=== PATIENT | female | born 1975 | race Caucasian/White ===

== ENCOUNTER 2017-12-31 14:53 | Emergency (ER) | payer OTHER ==
[~2017-12-31] VITALS: Ht 172.7 cm; Wt 200.3 kg
[2017-12-31 15:25] VITALS: BP 153/64
[2017-12-31] MEDS ORDERED: KETOROLAC 60 MG/2 ML VIAL IM ONE (16:05)
--- NOTE | 2017-12-31 16:14 | NUR ---
PT COMES TO ER WITH C/O LEFT LOWER BACK PAIN RADIATING TO LLE WITH MILD NUMBNESS. PT DENIES ANY ACUTE INJURY. STATES SHE HAS BEEN HAVING ISSUES WITH IT FOR A WHILE. PT AMBULATORY. MOTHER AT BEDSIDE.
--- NOTE | 2017-12-31 16:26 | NUR ---
MEDICATED ORDERED, WILL MONITOR FOR ANY ADVERSE SIDE EFFCTS.
[2017-12-31 16:45] VITALS: BP 123/88
--- NOTE | 2017-12-31 16:45 | NUR ---
Patient discharged with v/s stable. Written and verbal after care instructions given and explained. Patient alert, oriented and verbalized understanding of instructions. Ambulatory with steady gait. All questions addressed prior to discharge. ID band removed. Patient advised to follow up with PMD. Rx of TRAMADOL, MEDROL given. Patient educated on indication of medication including possible reaction and side effects. Opportunity to ask questions provided and answered.
== END 2017-12-31 16:45 | disposition home or self-care (01) ==
LOC: MED 14:53
DX: M54.42 Lumbago with sciatica, left side (principal); E66.01 Morbid (severe) obesity due to excess calories; Z68.44 Body mass index [BMI] 60.0-69.9, adult
CPT/HCPCS: 96372; 99283; J1885

== ENCOUNTER 2019-02-21 16:28 | Inpatient (IN) | payer OTHER ==
[~2019-02-21] VITALS: Ht 170.2 cm; Wt 186.4 kg
[2019-02-21 16:33] VITALS: BP_SYST 171; BP_SYST 71; BP_DIAS 84
--- NOTE | 2019-02-21 16:40 | NUR ---
PT AMBULATED TO CHAIR C AT THIS TIME, UNTIL A BED OPENS UP.
--- NOTE | 2019-02-21 16:40 | NUR ---
DR. ROSENBERG AT BEDSIDE EVALUATING PT
--- NOTE | 2019-02-21 16:49 | NUR ---
PT BIB SELF, REFERRED FROM PCP FOR ABNORMAL LABS, PT REFERRAL STATES HER HGB IS 5.7. PT DENIES ANY BLEEDING OR HEAVY MENSTURAL CYCLE. PT STATES SHE HAS FELT FATIGUED RECENTLY. PT SKIN IS PALE, WARM, DRY. PT AWAKE AND ALERT SITTING IN CHAIR. PMH HTN
[2019-02-21 17:48] LABS: BASOPHILS % (AUTO) 0.5 % (0.0-2.0); EOSINOPHILS # (AUTO) 0.2 K/uL (0-0.4); EOSINOPHILS % (AUTO) 2.5 % (0.0-4.0); HEMATOCRIT 21.4 % (36-48); LYMPHOCYTES % (AUTO) 34.7 % (20.5-51.1); MEAN CORPUSCULAR HEMOGLOBIN 14 pg (27-31); MEAN CORPUSCULAR HGB CONC 27 g/dL (33-37); MEAN CORPUSCULAR VOLUME 53.3 fL (80-94); MONOCYTES # (AUTO) 0.9 K/uL (0.8-1.0); MONOCYTES % (AUTO) 10.5 % (1.7-9.3); NEUTROPHILS # (AUTO) 4.4 K/uL (1.8-7.7); NEUTROPHILS % (AUTO) 51.8 % (42.2-75.2); PLATELET COUNT (AUTO) 386 K/uL (140-450); RED BLOOD CELL COUNT(AUTO) 4.02 MIL/uL (4.20-5.40); RED CELL DISTRIBUTION WIDTH 22.5 % (11.6-13.7); WHITE BLOOD COUNT (AUTO) 8.6 K/uL (4.8-10.8)
[2019-02-21 17:56] LABS: HEMOGLOBIN 5.7 g/dL (12.0-16.0)
[2019-02-21 18:05] LABS: CARBON DIOXIDE 25.2 mmol/L (21-32); CREATININE 1.1 mg/dL (0.6-1.3); POTASSIUM 3.2 mmol/L (3.5-5.1)
[2019-02-21 18:08] LABS: PROTHROMBIN TIME 10.8 secs (10.8-13.4)
[2019-02-21 18:20] LABS: ALBUMIN 3.7 g/dL (3.4-5.0); FREE T4 (FREE THYROXINE) 1.38 ng/dL (0.76-1.46); THYROID STIMULATING HORMONE 5.66 uIU/mL (0.34-3.74)
[2019-02-21] MEDS ORDERED: ONDANSETRON 4 MG/2 ML VIAL IVP PRN (18:50)
[2019-02-21] MEDS ORDERED: ACETAMINOPHEN 325 MG TAB PO PRN (18:50)
[2019-02-21] MEDS ORDERED: ALBUTEROL 0.083% 2.5 MG/3 ML NEBU INH PRN (18:50)
[2019-02-21] MEDS ORDERED: MORPHINE SULFATE 4 MG/ML SYR IVP PRN (18:50)
[2019-02-21] MEDS ORDERED: HYDROcodone/APAP 5/325 MG 1 TAB TAB PO PRN (18:50)
[2019-02-21] MEDS ORDERED: LORazepam 2 MG/ML VIAL IVP PRN (18:50)
[2019-02-21] MEDS ORDERED: ORE25 PO (19:00)
[2019-02-21] MEDS ORDERED: AMLO5TAB PO (19:01)
[2019-02-21] MEDS ORDERED: LEVO0.155 PO (19:01)
[2019-02-21 19:27] VITALS: BP 110/61
--- NOTE | 2019-02-21 19:27 | NUR ---
RECEIVED BEDSIDE REPORT FROM ED RN JANNETH, FOR PT'S CONTINUITY OF CARE. PATIENT IS AAO X 4, IS ON ROOM AIR, HAS LEFT FOREARM 20G SALINE LOCK, SKIN IS INTACT, DENIES ANY PAIN AT THIS TIME. WILL CHECK VS, AND CARRY OUT ADMIT ORDERS. PT IS TO RECEIVE BLOOD TRANSFUSION, EXPLAINED TO PT PROCESS AND PROTOCOL RE: BLOOD TRANSFUSION. PT VERBALIZED UNDERSTANDING. WILL MONITOR PT THROUGHOUT SHIFT.
--- NOTE | 2019-02-21 19:35 | NUR ---
Patient will be admitted to care of DR. LOVE. Admited to MED SURG. Will go to room 120-A. Belongings list completed. Report to JEAN ROE.
[2019-02-21] MEDS: NACL 0.9% 1,000 ML IV SCH (21:10)
--- NOTE | 2019-02-21 21:10 | NUR ---
HUNG IV NS 1,000 ML/HR INFUSING AT 80 ML/HR, ORDERED.
--- NOTE | 2019-02-21 23:00 | NUR ---
STILL WAITING FOR BLOOD TRANSFUSION TO START. PT AWAKE, ALERT, WATCHING TV, DENIES PAIN AT THIS TIME. VS CHECKED AND CHARTED. WILL CONTINUE TO MONITOR PT.
[2019-02-22] VITALS: BP 144/75
--- NOTE | 2019-02-22 00:35 | NUR ---
BLOOD TRANSFUSION START ORDERED. PRE TRANSFUSION VS: T 97.4, BP 134//69 RIGHT RADIAL, P 91, RR 17, O2 SAT 98%, DENIES PAIN AT THIS TIME. WILL INITIATE BLOOD TRANSFUSION PROTOCOL.
--- NOTE | 2019-02-22 03:40 | NUR ---
1ST UNIT OF BLOOD TRANSFUSION ENDED. PROTOCOL AND PROCEDURE FOLLOWED. WILL BUSINESS SERVICES MANAGER THE 2ND UNIT.
--- NOTE | 2019-02-22 04:10 | NUR ---
2ND UNIT BLOOD TRANSFUSION STARTED. PROTOCOL AND PROCEDURE INITIATED. NO REACTION FROM 1ST UNIT. WILL CONTINUE TO MONITOR PT.
--- NOTE | 2019-02-22 05:58 | NUR ---
MADE ROUNDS. PATIENT STILL RECEIVING BLOOD TRANSFUSION, AND PT DENIES ANY PAIN. WILL ENDORSE TO AM SHIFT RN FOR PT'S CONTINUITY OF CARE.
--- NOTE | 2019-02-22 06:30 | NUR ---
BLOOD TRANSFUSION 2ND UNIT COMPLETE. VS CHECKED AND LOGGED. NO REACTION NOTED, AND PATIENT DENIES ANY PAIN. PT AWAKE AND IN STABLE CONDITION. BLOOD DRAW WILL BE TAKEN AT 0900 PER LAB. WILL ENDORSE PATIENT TO AM SHIFT RN FOR PT CONTINUITY OF CARE.
[2019-02-22] MEDS: NACL 0.9% 1,000 ML IV SCH ×3 (07:16→23:15)
--- NOTE | 2019-02-22 07:30 | NUR ---
RECEIVED BEDSIDE REPORT FROM AIRCRAFT POWERTRAIN REPAIRER NURSE. PT IS AWAKE AND ALERT, SITTING UP IN BED AND WATCHING TV. SECOND UNIT OF PRBC'S IS FINISHING UP INFUSION. PT IS IN NO ACUTE DISTRESS, NO C/O PAIN OR SOB. PT IS ON ROOM AIR, SKIN INTACT. PT IS ON A REGULAR DIET. IV SITE IS IN THE L FA 20 G. CALL LIGHT IS WITHIN REACH, WILL CONTINUE TO MONITOR.
[2019-02-22 08:00] VITALS: BP 140/70
--- NOTE | 2019-02-22 08:21 | NUR ---
PATIENT HAS BEEN SCREENED AND CATEGORIZED HIGH NUTRITION RISK. PATIENT WILL BE SEEN WITHIN 1-2 DAYS OF ADMISSION. 02/22/19-02/23/[address]
[2019-02-22 09:22] LABS: BASOPHILS # (AUTO) 0.1 K/uL (0.00-0.22); BASOPHILS % (AUTO) 0.7 % (0.0-2.0); EOSINOPHILS # (AUTO) 0.2 K/uL (0-0.4); EOSINOPHILS % (AUTO) 2.2 % (0.0-4.0); HEMATOCRIT 23.3 % (36-48); LYMPHOCYTES % (AUTO) 35.8 % (20.5-51.1); MEAN CORPUSCULAR HEMOGLOBIN 17 pg (27-31); MEAN CORPUSCULAR HGB CONC 29 g/dL (33-37); MEAN CORPUSCULAR VOLUME 57.6 fL (80-94); MONOCYTES # (AUTO) 0.8 K/uL (0.8-1.0); MONOCYTES % (AUTO) 9.9 % (1.7-9.3); NEUTROPHILS # (AUTO) 4.2 K/uL (1.8-7.7); NEUTROPHILS % (AUTO) 51.4 % (42.2-75.2); PLATELET COUNT (AUTO) 327 K/uL (140-450); RED BLOOD CELL COUNT(AUTO) 4.04 MIL/uL (4.20-5.40); RED CELL DISTRIBUTION WIDTH 29.1 % (11.6-13.7); WHITE BLOOD COUNT (AUTO) 8.3 K/uL (4.8-10.8)
[2019-02-22] MEDS: FERROUS SULFATE 325 MG TABEC PO SCH ×3 (09:23→16:14)
--- NOTE | 2019-02-22 09:26 | NUR ---
SCHEDULED AM IRON ADMINISTERED. IV NS INFUSING 80 ML/HR. AM LABS STILL PENDING.
[2019-02-22 09:34] LABS: HEMOGLOBIN 6.7 g/dL (12.0-16.0)
--- NOTE | 2019-02-22 09:53 | NUR ---
DR LOVE NOTIFIED OF PT'S HGB 5.[address] LOVE ORDERED ONE MORE UNIT OF PRBC'S AND CBC DRAW AFTER 1 HOUR. Addendum: 02/22/19 at 0954 by Paty Murphy RN COORECTION: HGB 6.7
[2019-02-22 10:14] LABS: ANION GAP 11.6 (8-16); CREATININE 1.2 mg/dL (0.6-1.3); POTASSIUM 3.6 mmol/L (3.5-5.1); TOTAL BILIRUBIN 1.2 mg/dL (0.0-1.0)
[2019-02-22 10:15] LABS: ALBUMIN 3.4 g/dL (3.4-5.0); MAGNESIUM 2.1 mg/dL (1.8-2.4)
--- NOTE | 2019-02-22 10:40 | NUR ---
CALLED LAB TO ASK IF BLOOD IS READY, COCOA MILL OPERATOR SAYS BLOOD IS NOT READY YET AND THEY WILL CALL ME WHEN IT IS READY.
--- NOTE | 2019-02-22 11:58 | NUR ---
WENT TO LAB TO ASK ABOUT BLOOD UNIT, DRAFTER DETAIL STILL DOES NOT HAVE BLOOD READY.
--- NOTE | 2019-02-22 12:48 | NUR ---
PT IS LYING IN BED WATCHING TV, NO S/S OF ANY DISTRESS.
--- NOTE | 2019-02-22 13:15 | NUR ---
RBC INFUSION STARTED. PT'S VS PRE-INFUSION: BP 136/65, HR 92, TEMP 98.1, RESP 16, O2 96, NO PAIN.
--- NOTE | 2019-02-22 13:29 | NUR ---
RBC TRANSFUSION PROCEEDING, NO S/S OF TRANSFUSION REACTIONS. VS STABLE.
--- NOTE | 2019-02-22 14:29 | NUR ---
02/22/19 RD INITIAL ASSESSMENT COMPLETED PLEASE REFER TO NUTRITION ASSESSMENT UNDER CARE ACTIVITY FOR ESTIMATED NUTRITIONAL NEEDS. 1. CONTINUE REGULAR DIET TOLERATED 2. RD PROVIDED PATIENT WITH IRON RICH FOODS AND ANEMIA NUTRITION THERAPY EDUCATION. 3. RD TO [id number] DAYS, LOW RISK ASIA GALINDO, DELORES
--- NOTE | 2019-02-22 15:13 | NUR ---
BLOOD TRANSFUSION PROCEEDING EXPECTED, NO S/S OF DISTRESS REACTIONS. VS ARE STABLE. TWO VISITORS AT BEDSIDE.
[2019-02-22 15:57] VITALS: BP 124/57
--- NOTE | 2019-02-22 16:30 | NUR ---
BLOOD TRANSFUSION COMPLETED, NO TRANSFUSION REACTIONS NOTED.
[2019-02-22 18:15] LABS: BASOPHILS # (AUTO) 0.1 K/uL (0.00-0.22); BASOPHILS % (AUTO) 1.1 % (0.0-2.0); EOSINOPHILS # (AUTO) 0.1 K/uL (0-0.4); EOSINOPHILS % (AUTO) 1.4 % (0.0-4.0); HEMATOCRIT 24.7 % (36-48); HEMOGLOBIN 7.3 g/dL (12.0-16.0); LYMPHOCYTES # (AUTO) 2.6 K/uL (2.5-16.5); LYMPHOCYTES % (AUTO) 32.3 % (20.5-51.1); MEAN CORPUSCULAR HEMOGLOBIN 17 pg (27-31); MEAN CORPUSCULAR HGB CONC 29 g/dL (33-37); MEAN CORPUSCULAR VOLUME 59.1 fL (80-94); MONOCYTES # (AUTO) 0.8 K/uL (0.8-1.0); MONOCYTES % (AUTO) 10.3 % (1.7-9.3); NEUTROPHILS # (AUTO) 4.5 K/uL (1.8-7.7); NEUTROPHILS % (AUTO) 54.9 % (42.2-75.2); PLATELET COUNT (AUTO) 323 K/uL (140-450); RED BLOOD CELL COUNT(AUTO) 4.18 MIL/uL (4.20-5.40); RED CELL DISTRIBUTION WIDTH 31.8 % (11.6-13.7); WHITE BLOOD COUNT (AUTO) 8.1 K/uL (4.8-10.8)
--- NOTE | 2019-02-22 19:20 | NUR ---
PT ENDORSED TO PRESS BRAKE OPERATOR NURSE IN STABLE CONDITION
--- NOTE | 2019-02-22 19:21 | NUR ---
RECEIVED BEDSIDE REPORT FROM DAY SHIFT NURSE. PT IS AWAKE AND ALERT, SITTING UP IN BED. DENIES PAIN. SKIN INTACT, WARM AND DRY TO TOUCH. PT IS ON ROOM AIR. IV SITE ON THE L FA 20 G, PATENT, INTACT, AND ASYMPTOMATIC. CALL LIGHT WITHIN REACH, BED IN LOW POSITION, WILL CONTINUE TO MONITOR.
--- NOTE | 2019-02-22 20:10 | NUR ---
PT AWAKE, STAYING IN BED. FAMILY AT BEDSIDE. NO ACUTE DISTRESS NOTED. BED IN LOW POSITION.
--- NOTE | 2019-02-22 23:15 | NUR ---
IVF, NS, 1000ML DONE ON 02/22/2019 AT 2315, HANG NEW BAG OF NS, 1,000ML AT SAME TIME. PT TOLERATED WELL.
[2019-02-23] VITALS: BP 138/68
--- NOTE | 2019-02-23 00:05 | NUR ---
VS CHECKED, WITHIN PT'S BASELINE. BED IN LOW POSITION, WILL CONTINUE TO MONITOR.
--- NOTE | 2019-02-23 02:34 | NUR ---
PT AWAKE, LYING IN BED. WATCHING TV. NO ACUTE DISTRESS NOTED. WILL CONTINUE TO MONITOR.
--- NOTE | 2019-02-23 04:38 | NUR ---
PT LYING IN BED, AWAKE, WATCHING TV. NO ACUTE DISTRESS NOTED. BED IN LOW POSITION, CALL LIGHT WITHIN REACH.
--- NOTE | 2019-02-23 06:26 | NUR ---
PT SLEEPING IN BED. BREATHING EVEN AND UNLABORED. BED IN LOW POSITION. CALL LIGHT WITHIN REACH.
--- NOTE | 2019-02-23 07:28 | NUR ---
RECEIVED BEDSIDE REPORT FROM DIRECTOR TALENT NURSE. PATIENT IS AWAKE, ALERT AND ORIENTEDX4. NO SIGNS OF DISTRESS ON RA. SKIN IS INTACT. IV ON L FA 20G. CLEAN, DRY AND INTACT. PATIENT IS AMBULATORY. CONTINENT. ABLE TO MAKE NEEDS KNOWN. BED IN LOW POSITION. CALL LIGHT WITHIN REACH. WILL CONTINUE TO MONITOR THE PATIENT.
[2019-02-23 08:00] VITALS: BP 124/64
--- NOTE | 2019-02-23 08:10 | NUR ---
IV FLUIDS STOPPED, IV IS LEAKING. WILL PLACE A NEW IV
[2019-02-23 08:17] LABS: BASOPHILS % (AUTO) 0.3 % (0.0-2.0); EOSINOPHILS # (AUTO) 0.2 K/uL (0-0.4); EOSINOPHILS % (AUTO) 2.4 % (0.0-4.0); HEMATOCRIT 24.4 % (36-48); LYMPHOCYTES # (AUTO) 3.1 K/uL (2.5-16.5); LYMPHOCYTES % (AUTO) 34.8 % (20.5-51.1); MEAN CORPUSCULAR HEMOGLOBIN 17 pg (27-31); MEAN CORPUSCULAR HGB CONC 29 g/dL (33-37); MONOCYTES # (AUTO) 0.8 K/uL (0.8-1.0); MONOCYTES % (AUTO) 9.1 % (1.7-9.3); NEUTROPHILS # (AUTO) 4.7 K/uL (1.8-7.7); NEUTROPHILS % (AUTO) 53.4 % (42.2-75.2); PLATELET COUNT (AUTO) 317 K/uL (140-450); RED BLOOD CELL COUNT(AUTO) 4.07 MIL/uL (4.20-5.40); RED CELL DISTRIBUTION WIDTH 31.4 % (11.6-13.7); WHITE BLOOD COUNT (AUTO) 8.8 K/uL (4.8-10.8)
[2019-02-23] MEDS: FERROUS SULFATE 325 MG TABEC PO SCH ×3 (08:25→17:29)
--- NOTE | 2019-02-23 08:26 | NUR ---
ADMINISTERED MEDS. PATIENT TOLERATED WELL. EDUCATED ON SIDE EFFECTS. PATIENT IS EATING WILL INSERT IV WHEN PATIENT IS DONE EATING.
--- NOTE | 2019-02-23 09:10 | NUR ---
ATTEMPTED A NEW IV. PATIENT IS A HARD STICK. ASKED CHARGE NURSE TO PUT A NEW IV.
--- NOTE | 2019-02-23 09:15 | NUR ---
CONTACTED PATIENT'S PCP DR GONZALEZ JJ'S OFFICE AT [phone]. SHE STATED THAT PATIENT CAN JUST WALK IN [place] FROM 0930 AM. SHE ALSO PROVIDED ME OF THEIR ADDRESS [address] [place] [address]. COPY OF APPOINTMENT GIVEN TO THE PATIENT.
--- NOTE | 2019-02-23 09:50 | NUR ---
CHARGE NURSE PLACED A NEW IV ON L FA 22G NOW INFUSING NS AT 80. CLEAN, DRY AND INTACT. OLD IV REMOVED. TIP INTACT
--- NOTE | 2019-02-23 11:04 | NUR ---
PATIENT WITH FAMILY AT BEDSIDE. NO SIGNS OF DISTRESS. WILL CONTINUE TO MONITOR THE PATIENT
--- NOTE | 2019-02-23 11:36 | NUR ---
ADMINISTERED [facility] MEDS. PATIENT TOLERATED WELL. WILL CONTINUE TO MONITOR THE PATIENT
--- NOTE | 2019-02-23 12:57 | NUR ---
TOLD PATIENT I AM JUST WAITING FOR BLOOD TO BE READY AND I WILL ADMINISTER IT. PATIENT VERBALIZED UNDERSTANDING
--- NOTE | 2019-02-23 14:25 | NUR ---
BLOOD STARTED. PATIENT IN NO DISTRESS. WILL CONTINUE TO MONITOR
--- NOTE | 2019-02-23 15:45 | NUR ---
PATIENT HAS NO SIGNS OF REACTION FROM BLOOD. WILL CONTINUE TO MONITOR THE PATIENT
[2019-02-23 16:00] VITALS: BP 130/71
--- NOTE | 2019-02-23 16:55 | NUR ---
BLOOD TRANSFUSION DONE. NO REACTION
[2019-02-23] MEDS: NACL 0.9% 1,000 ML IV SCH (17:30)
--- NOTE | 2019-02-23 17:33 | NUR ---
ADMINISTERED MEDS. PATIENT TOLERATED WELL. WILL CONTINUE TO MONITOR
--- NOTE | 2019-02-23 17:57 | NUR ---
PATIENT IS AWARE THAT SHE WILL GET BLOOD WORK AT 1900. IF HGB IS GREATER THAN 7.5 SHE CAN GO HOME
--- NOTE | 2019-02-23 19:02 | NUR ---
GAVE BEDSIDE REPORT TO EXECUTIVE BUSINESS COACH NURSE. PATIENT ENDORSED IN STABLE CONDITION
--- NOTE | 2019-02-23 19:03 | NUR ---
Received endorsement from AM shift RN; patient A/Ox4, able to make needs known, [place]or[place] speaking, ambulatory. Family at [facility]; introduced self, updated board. no SOB or distress noted, on room air. IV site on left forearm, 22 gauge, running IVF at 80mL/hr. Skin intact. Bed in the lowest position, call light within reach. Initial assessment done. Will continue to monitor.
[2019-02-23 19:16] LABS: BASOPHILS # (AUTO) 0.1 K/uL (0.00-0.22); BASOPHILS % (AUTO) 1.1 % (0.0-2.0); EOSINOPHILS # (AUTO) 0.2 K/uL (0-0.4); EOSINOPHILS % (AUTO) 2.3 % (0.0-4.0); HEMATOCRIT 26.6 % (36-48); HEMOGLOBIN 7.7 g/dL (12.0-16.0); LYMPHOCYTES # (AUTO) 2.4 K/uL (2.5-16.5); LYMPHOCYTES % (AUTO) 29.1 % (20.5-51.1); MEAN CORPUSCULAR HEMOGLOBIN 18 pg (27-31); MEAN CORPUSCULAR HGB CONC 29 g/dL (33-37); MEAN CORPUSCULAR VOLUME 61.7 fL (80-94); MONOCYTES # (AUTO) 0.8 K/uL (0.8-1.0); MONOCYTES % (AUTO) 9.1 % (1.7-9.3); NEUTROPHILS # (AUTO) 4.9 K/uL (1.8-7.7); NEUTROPHILS % (AUTO) 58.4 % (42.2-75.2); PLATELET COUNT (AUTO) 316 K/uL (140-450); RED BLOOD CELL COUNT(AUTO) 4.31 MIL/uL (4.20-5.40); RED CELL DISTRIBUTION WIDTH 33.6 % (11.6-13.7); WHITE BLOOD COUNT (AUTO) 8.4 K/uL (4.8-10.8)
--- NOTE | 2019-02-23 20:01 | NUR ---
FAMILY AT BED SIDE, SAT 99% IN ROOM AIR, FAMILY AT BED SIDE, HHN TX NOT [id number], REFUSED IS
[2019-02-23 20:04] VITALS: BP 130/68
[2019-02-23] MEDS ORDERED: FERR325E14 PO ×3 (20:18→20:21)
--- NOTE | 2019-02-23 20:30 | NUR ---
Checked HgB level: 7.7. Patient cleared for discharge.
--- NOTE | 2019-02-23 20:45 | NUR ---
Patient signed discharge paperwork and discharge packet given, teaching given. IV removed; tip intact. ID bracelets removed. Patient discharged from the unit via wheelchair. Vitals stable upon discharge.
--- NOTE | 2019-02-24 14:32 | NUR ---
CONTACTED PATIENT'S PCP HALLE PENA AT [phone], NO ANSWER. LEFT MESSAGE AND CONTACT INFORMATION. WILL FOLLOW UP
--- NOTE | 2019-02-24 14:42 | NUR ---
CONTACTED PATIENT'S PCP AGAIN, ABLE TO SPEAK TO MORRO. PROVIDE ME WITH Feb AT 1030 AM POST DISCHARGE APPOINTMENT. COPY OF APPOINTMENT PROVIDED TO THE PATIENT.
== END 2019-02-23 20:45 | disposition home or self-care (01) | DRG 532 ==
LOC: MED 16:28 → MMU 18:49 → MTU 19:29 → OBSVTOIN 02-23 10:56
PROVIDERS: ADMIT Internal Medicine; ATTEND Internal Medicine
PROC: 30233N1 Transfusion of Nonautologous Red Blood Cells into Peripheral Vein, Percutaneous Approach (ICD-10-PCS; principal; 2019-02-21)
DX: N92.6 Irregular menstruation, unspecified (principal); E66.01 Morbid (severe) obesity due to excess calories; D64.9 Anemia, unspecified; E61.1 Iron deficiency; E03.9 Hypothyroidism, unspecified; I10 Essential (primary) hypertension
CPT/HCPCS: 99285; G0378; 36415; 36430; 76830; 80053; 83540; 83735; 84439; 84443; 84484; 85025; 85610; 85730; 86886; 86900; 86901; 86920; 87081; 93005; J7030; P9016; Q0092

== ENCOUNTER 2019-09-15 15:31 | Emergency (ER) | payer OTHER ==
[~2019-09-15] VITALS: Ht 170.2 cm; Wt 181.9 kg
[~2019-09-15 15:31] MED LIST: AMLO5TAB PO; FERR325E14 PO; LEVO0.155 PO; ORE25 PO
[2019-09-15 15:40] VITALS: BP 187/86
[2019-09-15 16:06] VITALS: BP 180/84
== END 2019-09-15 16:06 | disposition home or self-care (01) ==
LOC: MED 15:31
DX: F41.9 Anxiety disorder, unspecified (principal); I10 Essential (primary) hypertension; Z79.899 Other long term (current) drug therapy
CPT/HCPCS: 99283

== ENCOUNTER 2021-03-09 15:02 | Emergency (ER) | payer OTHER ==
[~2021-03-09] VITALS: Ht 172.7 cm; Wt 111.6 kg
[~2021-03-09 15:02] MED LIST changes: +HYDR-4004 PO; -ORE25 PO
--- NOTE | 2021-03-09 15:14 | NUR ---
PT TAKEN TO ER BED 9.
[2021-03-09 15:16] VITALS: BP 149/74
--- NOTE | 2021-03-09 15:21 | NUR ---
45 Y/O FEMALE BIBA C/O PALPITATIONS AND CHEST PAIN 2/10 X5HRS INTERMITTENT, ON ARRIVAL PT STATES 0/10. DENIES N/V, DENIES FEVER/CHILLS. PMH: HTN, HYPOTHYROIDISM ALLERGIES: LACTOSE
--- NOTE | 2021-03-09 15:35 | NUR ---
VICE ADMIRAL AT PT BEDSIDE.
--- NOTE | 2021-03-09 15:36 | NUR ---
PUBLIC BATH ATTENDANT AT PT BEDSIDE.
[2021-03-09 15:55] LABS: BASOPHILS # (AUTO) 0.1 K/uL (0.00-0.22); BASOPHILS % (AUTO) 1.1 % (0.0-2.0); EOSINOPHILS # (AUTO) 0.2 K/uL (0-0.4); HEMATOCRIT 28.5 % (36-48); HEMOGLOBIN 8.3 g/dL (12.0-16.0); LYMPHOCYTES # (AUTO) 1.4 K/uL (2.5-16.5); LYMPHOCYTES % (AUTO) 19.4 % (20.5-51.1); MEAN CORPUSCULAR HEMOGLOBIN 18 pg (27-31); MEAN CORPUSCULAR HGB CONC 29 g/dL (33-37); MEAN CORPUSCULAR VOLUME 61.4 fL (80-94); MONOCYTES # (AUTO) 0.9 K/uL (0.8-1.0); MONOCYTES % (AUTO) 13.1 % (1.7-9.3); NEUTROPHILS # (AUTO) 4.5 K/uL (1.8-7.7); NEUTROPHILS % (AUTO) 63.4 % (42.2-75.2); PLATELET COUNT (AUTO) 341 K/uL (140-450); RED BLOOD CELL COUNT(AUTO) 4.63 MIL/uL (4.20-5.40); RED CELL DISTRIBUTION WIDTH 18.4 % (11.6-13.7)
--- NOTE | 2021-03-09 16:11 | NUR ---
PT RESTING IN BED, HOB ELEVATED, WILL CONTINUE TO MONITOR.
[2021-03-09 16:15] LABS: ALBUMIN 3.6 g/dL (3.4-5.0); ANION GAP 12.9 (8-16); CARBON DIOXIDE 26.7 mmol/L (21-32); CREATININE 0.9 mg/dL (0.6-1.3); POTASSIUM 3.6 mmol/L (3.5-5.1); TOTAL BILIRUBIN 0.4 mg/dL (0.0-1.0)
[2021-03-09] MEDS ORDERED: HYDR25CA1 PO (16:36)
[2021-03-09 16:48] VITALS: BP 142/76
--- NOTE | 2021-03-09 16:49 | NUR ---
Patient discharged with v/s stable. Written and verbal after care instructions given ANEMIA AND PANIC ATTACKS and explained. Patient alert, oriented and verbalized understanding of instructions. Ambulatory with steady gait. All questions addressed prior to discharge. ID band removed. Patient advised to follow up with PMD. Rx of VISTARIL 25MG PO BID PRN ANXIETY given. Patient educated on indication of medication including possible reaction and side effects. Opportunity to ask questions provided and answered.
== END 2021-03-09 16:49 | disposition home or self-care (01) ==
LOC: MED 15:02
DX: F41.0 Panic disorder [episodic paroxysmal anxiety] (principal); D50.9 Iron deficiency anemia, unspecified; I10 Essential (primary) hypertension; E03.9 Hypothyroidism, unspecified; E66.01 Morbid (severe) obesity due to excess calories; Z68.37 Body mass index [BMI] 37.0-37.9, adult
CPT/HCPCS: 36415; 71045; 80053; 83690; 83735; 83880; 84484; 85025; 85379; 93005; 99285

== ENCOUNTER 2022-06-14 13:06 | Inpatient (IN) | payer OTHER ==
[~2022-06-14] VITALS: Ht 175.3 cm; Wt 158.3 kg
[~2022-06-14 13:06] MED LIST changes: +HYDR25CA1 PO
[2022-06-14 13:12] VITALS: BP 139/76
--- NOTE | 2022-06-14 13:23 | NUR ---
PT AMB TO BED 11
--- NOTE | 2022-06-14 13:27 | NUR ---
Felicitas ralph in [facility] - 06/14/22 at 1329 by [id number] PT C/O VAGINAL BLEEDING X2 DAYS
--- NOTE | 2022-06-14 13:29 | NUR ---
PT C'/O VAGINAL BLEEDING, DIZZINESS AND WEAKNESS X3 DAYS
[2022-06-14 13:56] LABS: CARBON DIOXIDE 28.4 mmol/L (21-32); CREATININE 1.3 mg/dL (0.6-1.3); POTASSIUM 3.4 mmol/L (3.5-5.1); TOTAL BILIRUBIN 0.4 mg/dL (0.0-1.0)
--- NOTE | 2022-06-14 14:08 | NUR ---
US AT BEDSIDE
[2022-06-14 14:46] LABS: BASOPHILS # (AUTO) 0.2 K/uL (0.00-0.22); BASOPHILS % (AUTO) 1.3 % (0.0-2.0); EOSINOPHILS # (AUTO) 0.1 K/uL (0-0.4); EOSINOPHILS % (AUTO) 0.9 % (0.0-4.0); LYMPHOCYTES # (AUTO) 2.1 K/uL (2.5-16.5); LYMPHOCYTES % (AUTO) 17.2 % (20.5-51.1); MEAN CORPUSCULAR HEMOGLOBIN 18 pg (27-31); MEAN CORPUSCULAR HGB CONC 28 g/dL (33-37); MEAN CORPUSCULAR VOLUME 66.6 fL (80-94); MONOCYTES # (AUTO) 1.1 K/uL (0.8-1.0); MONOCYTES % (AUTO) 9.2 % (1.7-9.3); NEUTROPHILS # (AUTO) 8.9 K/uL (1.8-7.7); NEUTROPHILS % (AUTO) 71.4 % (42.2-75.2); PLATELET COUNT (AUTO) 362 K/uL (140-450); RED BLOOD CELL COUNT(AUTO) 2.58 MIL/uL (4.20-5.40); RED CELL DISTRIBUTION WIDTH 19.7 % (11.6-13.7); WHITE BLOOD COUNT (AUTO) 12.4 K/uL (4.8-10.8)
--- NOTE | 2022-06-14 14:51 | NUR ---
pt a/o times 4, nad, had u/s done, denies any pain, slight vag bleed at this time, o2 sat 99% ra, sr up times 2, awaits results and dispo
[2022-06-14 14:58] LABS: HEMATOCRIT 17.2 % (36-48)
--- NOTE | 2022-06-14 15:51 | NUR ---
Felicitas ralph in [place] - 06/14/22 at 1741 by [id number] jello and orange juice given, pt able to swallow well
--- NOTE | 2022-06-14 16:00 | NUR ---
a/o times 4, nad, denies any pain, no vag bleed, o2 sat 99% ra, sr uptimes 2
[2022-06-14] MEDS ORDERED: metroNIDAZOLE 500 MG/NS PREMIX 100 ML IV ONE (16:15)
[2022-06-14] MEDS ORDERED: ZOLPIDEM 5 MG TAB PO PRN (16:25)
[2022-06-14] MEDS ORDERED: ONDANSETRON 4 MG/2 ML VIAL IVP PRN (16:25)
[2022-06-14] MEDS ORDERED: MAG SULF 2000 MG/WATER PREMIX 50 ML IV PRN (16:25)
[2022-06-14] MEDS ORDERED: POTASSIUM CHLORIDE 10 MEQ TABER PO PRN (16:25)
[2022-06-14] MEDS ORDERED: KCL 20 MEQ/WATER INJ PREMIX 200 ML IV PRN (16:25)
[2022-06-14] MEDS ORDERED: ACETAMINOPHEN 325 MG TAB PO PRN (16:25)
[2022-06-14] MEDS ORDERED: HYDROcodone/APAP 5/325 MG 1 TAB TAB PO PRN (16:25)
[2022-06-14] MEDS ORDERED: cefTRIAXone 1,000 MG VIAL ONE (16:42)
[2022-06-14] MEDS: NACL 0.9% 1,000 ML IV SCH (17:35)
--- NOTE | 2022-06-14 17:41 | NUR ---
a/o times 4, will be admitted, getting abx and ivf, denies any pain or vag bleed,o2 sat 99% ra sr up times 2
--- NOTE | 2022-06-14 19:13 | NUR ---
report to [facility] shift nurse, Nelia, RN
--- NOTE | 2022-06-14 20:28 | NUR ---
Patient appears to be resting comfortably in bed. Vital Signs within normal limits. Respirations even and unlabored.
[2022-06-14 21:44] LABS: HEMOGLOBIN 4.7 g/dL (12.0-16.0)
--- NOTE | 2022-06-14 22:22 | NUR ---
Patient moved to hospital bed.
--- NOTE | 2022-06-14 23:20 | NUR ---
Consent signed per patient agreeing to administration of blood. Blood has been type and crossmatched. Blood sent from blood bank. Information on unit of blood checked against patient wristband at bedside by two nurses. All information matches. Patient or responsible democrat informed of potential complications associated with blood transfusion. Informed of possible transfusion reaction symptoms. Aware of need to notify nurse at once of itching, shortness of breath, flushing, feeling of impending doom, or other symptoms not previously present. Vital signs taken within 5 minutes prior to initiation of transfusion. RN will remain with patient for first 15 minutes of transfusion at which time vital signs will be re-assessed.
--- NOTE | 2022-06-15 00:40 | NUR ---
Finish first blood transfusion, no S/S allergy reaction.
--- NOTE | 2022-06-15 01:31 | NUR ---
Start second blood transfusion -Consent signed per patient agreeing to administration of blood. Blood has been type and crossmatched. Blood sent from blood bank. Information on unit of blood checked against patient wristband at bedside by two nurses. All information matches. Patient or responsible alliance party informed of potential complications associated with blood transfusion. Informed of possible transfusion reaction symptoms. Aware of need to notify nurse at once of itching, shortness of breath, flushing, feeling of impending doom, or other symptoms not previously present. Vital signs taken within 5 minutes prior to initiation of transfusion. RN will remain with patient for first 15 minutes of transfusion at which time vital signs will be re-assessed.
--- NOTE | 2022-06-15 03:34 | NUR ---
Finish second blood transfusion, no S/S allergy reactions.
[2022-06-15] MEDS: NACL 0.9% 1,000 ML IV SCH ×3 (03:36→19:30)
--- NOTE | 2022-06-15 04:16 | NUR ---
Blood for labwork drawn by nuclear weapons specialist. Patient tolerated well.
--- NOTE | 2022-06-15 04:56 | NUR ---
called back for repeat hgb of 5.7, states wait another hour, repeat hgb, if result is below 7.0 transfuse another 2 units. orders carried out.
--- NOTE | 2022-06-15 05:44 | NUR ---
Patient appears to be resting comfortably in bed. Vital Signs within normal limits. Respirations even and unlabored.
--- NOTE | 2022-06-15 07:16 | NUR ---
Report given to JEAN Miller and endorse care of patient.
--- NOTE | 2022-06-15 07:30 | NUR ---
sleeping, no ac distress, o2 sat 98% ra, sr up times 2, awaits admission.
[2022-06-15 07:58] LABS: BASOPHILS # (AUTO) 0.1 K/uL (0.00-0.22); BASOPHILS % (AUTO) 1.1 % (0.0-2.0); EOSINOPHILS # (AUTO) 0.1 K/uL (0-0.4); LYMPHOCYTES # (AUTO) 1.6 K/uL (2.5-16.5); LYMPHOCYTES % (AUTO) 16.7 % (20.5-51.1); MEAN CORPUSCULAR HEMOGLOBIN 21 pg (27-31); MEAN CORPUSCULAR HGB CONC 30 g/dL (33-37); MEAN CORPUSCULAR VOLUME 70.2 fL (80-94); MONOCYTES # (AUTO) 0.8 K/uL (0.8-1.0); MONOCYTES % (AUTO) 8.2 % (1.7-9.3); NEUTROPHILS # (AUTO) 7.1 K/uL (1.8-7.7); PLATELET COUNT (AUTO) 312 K/uL (140-450); RED BLOOD CELL COUNT(AUTO) 2.68 MIL/uL (4.20-5.40); RED CELL DISTRIBUTION WIDTH 22.4 % (11.6-13.7); WHITE BLOOD COUNT (AUTO) 9.8 K/uL (4.8-10.8)
[2022-06-15] MEDS: LEVOTHYROXINE 0.075 MG TAB PO SCH (08:00)
--- NOTE | 2022-06-15 08:06 | NUR ---
Felicitas ralph in [facility] - 06/15/22 at 0807 by [id number] LAB CALLED FOR ABNORMAL LABS: B 5.8, NOTIFIED FREDDIE PENA
[2022-06-15 08:07] LABS: HEMATOCRIT 18.8 % (36-48); HEMOGLOBIN 5.7 g/dL (12.0-16.0)
--- NOTE | 2022-06-15 08:07 | NUR ---
LAB CALLED WITH ABNORMAL LABS: HGB 5.7, NOTIFIED RN, FREDDIE
[2022-06-15 08:14] LABS: ANION GAP 12.6 (8-16); CARBON DIOXIDE 26.7 mmol/L (21-32); CREATININE 0.9 mg/dL (0.6-1.3); POTASSIUM 3.3 mmol/L (3.5-5.1)
[2022-06-15 08:17] LABS: FREE T4 (FREE THYROXINE) 1.14 ng/dL (0.76-1.46); THYROID STIMULATING HORMONE 2.38 uIU/mL (0.34-3.74)
--- NOTE | 2022-06-15 11:12 | NUR ---
pt getting blood transfusion, no ac distress, o2 sat 98% ra, sr up times 2
--- NOTE | 2022-06-15 13:06 | NUR ---
no adverse reaction after first unit, now getting second one, denies any cp, sob, n, v, f, c, hematuria, abd pain
--- NOTE | 2022-06-15 15:12 | NUR ---
finished blood transfusion second unit, no adverse reactions, nsr on cm o2 sat 98% ra, sr up times 2
--- NOTE | 2022-06-15 17:29 | NUR ---
a/o times 4, nad, no vag bleed, no abd pain, o2 sat 98% ra, sr up times 2, awaits admission
[2022-06-15 18:08] LABS: BASOPHILS # (AUTO) 0.1 K/uL (0.00-0.22); EOSINOPHILS # (AUTO) 0.1 K/uL (0-0.4); EOSINOPHILS % (AUTO) 0.9 % (0.0-4.0); HEMATOCRIT 24.4 % (36-48); HEMOGLOBIN 7.4 g/dL (12.0-16.0); LYMPHOCYTES % (AUTO) 18.2 % (20.5-51.1); MEAN CORPUSCULAR HEMOGLOBIN 22 pg (27-31); MEAN CORPUSCULAR HGB CONC 31 g/dL (33-37); MEAN CORPUSCULAR VOLUME 72.7 fL (80-94); MONOCYTES # (AUTO) 1.1 K/uL (0.8-1.0); MONOCYTES % (AUTO) 10.2 % (1.7-9.3); NEUTROPHILS # (AUTO) 7.6 K/uL (1.8-7.7); NEUTROPHILS % (AUTO) 69.7 % (42.2-75.2); PLATELET COUNT (AUTO) 336 K/uL (140-450); RED BLOOD CELL COUNT(AUTO) 3.36 MIL/uL (4.20-5.40); RED CELL DISTRIBUTION WIDTH 23.8 % (11.6-13.7); WHITE BLOOD COUNT (AUTO) 10.9 K/uL (4.8-10.8)
--- NOTE | 2022-06-15 18:10 | NUR ---
food tray given
--- NOTE | 2022-06-15 19:06 | NUR ---
tolerated food well, no ac distress, o2 sat 98% ra, sr up times 2
--- NOTE | 2022-06-15 19:10 | NUR ---
report to Genoveva medical underwriter nurse
--- NOTE | 2022-06-15 19:30 | NUR ---
ASSUMED CARE OF PT AT THIS TIME. PT IN POSITION OF COMFORT. PT DENIES ANY PAIN OR NEEDS AT THIS TIME. PT UPDATED ON POC WITH FULL RETURNED VERBAL UNDERSTANDING. VSS. WILL CONTINUE TO MONITOR PAIN/COMFORT. ICE WATER PROVIDED.
--- NOTE | 2022-06-15 21:30 | NUR ---
PT RESTING, PROVIDED ICE WATER. DENIES ANY NEEDS OR PAIN AT THIS TIME. PT IN POSITION OF COMFORT. WILL CONTINUE TO MONITOR. VSS
--- NOTE | 2022-06-15 23:30 | NUR ---
PT RESTING. NO S/S OF DISTRESS NOTED. VSS. DENIES ANY PAIN OR NEEDS AT THIS TIME. WILL CONTINUE TO MONITOR.
[2022-06-16] MEDS: NACL 0.9% 1,000 ML IV SCH ×3 (00:33→16:25)
--- NOTE | 2022-06-16 01:30 | NUR ---
PT RESTING. NO S/S OF DISTRESS NOTED. VSS. DENIES ANY PAIN OR NEEDS AT THIS TIME. WILL CONTINUE TO MONITOR.
--- NOTE | 2022-06-16 03:30 | NUR ---
PT RESTING. NO S/S OF DISTRESS NOTED. VSS. DENIES ANY PAIN OR NEEDS AT THIS TIME. WILL CONTINUE TO MONITOR.
--- NOTE | 2022-06-16 03:30 | NUR ---
PT RESTING. NO S/S OF DISTRESS NOTED. VSS. DENIES ANY PAIN OR NEEDS AT THIS TIME. WILL CONTINUE TO MONITOR.
--- NOTE | 2022-06-16 05:30 | NUR ---
PT RESTING. NO S/S OF DISTRESS NOTED. VSS. DENIES ANY PAIN OR NEEDS AT THIS TIME. WILL CONTINUE TO MONITOR.
[2022-06-16 06:23] LABS: BASOPHILS # (AUTO) 0.1 K/uL (0.00-0.22); EOSINOPHILS # (AUTO) 0.1 K/uL (0-0.4); EOSINOPHILS % (AUTO) 1.5 % (0.0-4.0); HEMATOCRIT 23.3 % (36-48); LYMPHOCYTES # (AUTO) 1.5 K/uL (2.5-16.5); LYMPHOCYTES % (AUTO) 16.1 % (20.5-51.1); MEAN CORPUSCULAR HEMOGLOBIN 22 pg (27-31); MEAN CORPUSCULAR HGB CONC 30 g/dL (33-37); MEAN CORPUSCULAR VOLUME 73.4 fL (80-94); MONOCYTES # (AUTO) 0.9 K/uL (0.8-1.0); MONOCYTES % (AUTO) 9.6 % (1.7-9.3); NEUTROPHILS # (AUTO) 6.6 K/uL (1.8-7.7); NEUTROPHILS % (AUTO) 71.8 % (42.2-75.2); PLATELET COUNT (AUTO) 303 K/uL (140-450); RED BLOOD CELL COUNT(AUTO) 3.17 MIL/uL (4.20-5.40); RED CELL DISTRIBUTION WIDTH 23.6 % (11.6-13.7); WHITE BLOOD COUNT (AUTO) 9.2 K/uL (4.8-10.8)
[2022-06-16 07:04] LABS: ANION GAP 12.3 (8-16); CARBON DIOXIDE 27.2 mmol/L (21-32); POTASSIUM 3.5 mmol/L (3.5-5.1)
--- NOTE | 2022-06-16 07:20 | NUR ---
Received report from JEAN Tomas. Assumed care at this time
--- NOTE | 2022-06-16 07:20 | NUR ---
REPORT TO JYOTI
[2022-06-16 08:00] VITALS: BP 96/46
--- NOTE | 2022-06-16 08:04 | NUR ---
transfer of care at this time to med surg unit
--- NOTE | 2022-06-16 08:31 | NUR ---
RECEIVE ER NURSE REPORT THAT PATIENT IS FROM HOME FOR FATIGUE, HEAVY BLEEDING W/ PASSING CLOT, CRAMP. PATIENT DIAGNOSIS WITH ACUTE ANEMIA ( 4 UNITS BLOOD TRANSFUSING DONE IN ER) D/T VAGINA BLEEDING WHO HAS HX OF HTN, & HYPOTHYROIDISM. PATIENT ALLERGY TO LACTOSE-FOOD, FULL CODE, ALERT X4 ON ROOM AIR, REGULAR DIET. PIV AT RAC 20G PATENT FOR NS INFUSING AT 125ML/HR. PATIENT ADMIT UNDER CARE OF DR. DALE, AND PATIENT CURRENT IS MED/SURG WITH MOST RECENT HGB=7.0. WILL CONTINUE TO MONITOR
[2022-06-16] MEDS: LEVOTHYROXINE 0.075 MG TAB PO SCH (08:47)
--- NOTE | 2022-06-16 09:52 | NUR ---
PATIENT HAS BEEN SCREENED AND CATEGORIZED LOW NUTRITION RISK. PATIENT WILL BE SEEN WITHIN 7 DAYS OF ADMISSION. 06/21/[address]
--- NOTE | 2022-06-16 12:10 | NUR ---
DC PLANNING SW MET WITH PT AT BEDSIDE TO COMPLETE ASSESSMENT. PT REPORTS RESIDING IN A SINGLE STORY HOME WITH HER FAMILY, AT THE ADDRESS LISTED ON FILE. PT IDENTIFIES [place] PALACIOS, BROTHER, AND ACE GAVIRIA, MOTHER, EMERGENCY CONTACTS. PT DENIES HAVING AD IN PLACE AND ACCEPTED AD OFFERED BY SW. PT REPORTS LAST VISIT WITH PCP, 6 MONTHS AGO. PT REPORTS MEETING WITH PCP, NEEDED. SW SPOKE TO PT ABOUT IMPORTANCE OF FOLLOW UP CARE, PT RECEPTIVE, HOWEVER, REPORTS SHE WILL SCHEDULE F/UP APPT ON HER OWN. PT REPORTS MEDICATION COMPLIANCE AND DENIES BARRIERS IN ACCESSING NEEDED MEDICATIONS. PT REPORTS RECEIVING MEDICATION FROM [facility], WHEN NEEDED. PT REPORTS UTILIZING FWW/BC AND COMPLETES ADL'S INDEPENDENTLY. PT DENIES MH/AMARAL HX. PT DENIES HX OF HH, DIALYSIS TX, DIABETES, AND SNF PLACEMENT. PT REPORTS DC PLAN IS TO RETURN HOME WITH HER FAMILY PROVIDING TRANSPORTATION, WHEN MEDICALLY STABLE. SW INQUIRED ON RESOURCES NEEDED, PT DECLINED. Addendum: 06/17/22 at 0859 by Juan YOUNGBLOOD Amended: Links added.
--- NOTE | 2022-06-16 15:00 | NUR ---
CLOUD PHYSICIST REPORT FROM [facility] NURSE CYRUS FOR CONTINUITY OF CARE. PT CURRENTLY RECEIVING 1 UNIT OF PRBCS, NEW IV INSERTION NEEDED IV IN RIGHT AC IS LEAKING. NEW 22G IV INSERTED IN RIGHT HAND. PT IN STABLE CONDITION.
--- NOTE | 2022-06-16 17:43 | NUR ---
SAW NEW ADMISSION ORDERS, VERIFIED WITH DR. AVILES TO WHETHER THE PT WILL BE DISCHARGED TONIGHT. PER MD, PT TO BE DISCHARGED ASFTER BLOOD TRANSFUSION.
[2022-06-16 18:00] VITALS: BP 108/51
--- NOTE | 2022-06-16 18:30 | NUR ---
REVIEWED AND DISCUSSED DISCHARGE PAPERWORK AND INSTRUCTIONS, PT VERBALIZED UNDERSTANDING AND SIGNED ALL PAPERS. IV REMOVED AND DRESSED. PT IN STABLE CONDITION.
== END 2022-06-16 19:30 | disposition home or self-care (01) | DRG 532 ==
LOC: MED 13:06 → OBSVTOIN 16:26 → MTU 16:26 → MMU 06-16 05:54
PROVIDERS: ADMIT Internal Medicine; ATTEND Internal Medicine
PROC: 30233N1 Transfusion of Nonautologous Red Blood Cells into Peripheral Vein, Percutaneous Approach (ICD-10-PCS; principal; 2022-06-14)
DX: N93.9 Abnormal uterine and vaginal bleeding, unspecified (principal); D25.9 Leiomyoma of uterus, unspecified; D64.9 Anemia, unspecified; Z20.822 Contact with and (suspected) exposure to COVID-19; E03.9 Hypothyroidism, unspecified; I10 Essential (primary) hypertension; D72.829 Elevated white blood cell count, unspecified
CPT/HCPCS: 36415; 36430; 76856; 80048; 80053; 83735; 84439; 84443; 84484; 84702; 85018; 85025; 85610; 85730; 86886; 86900; 86901; 86920; 87081; 93005; 96365; 96375; 99285; J0696; J3490; P9016; Q0092

== ENCOUNTER 2023-04-22 13:22 | Inpatient (IN) | payer OTHER ==
[~2023-04-22] VITALS: Ht 175.3 cm; Wt 157.7 kg
[2023-04-22 13:30] VITALS: BP 144/79; PULSE 111; RESP 17; TEMP 97.4; O2SAT 99
[2023-04-22] MEDS ORDERED: NACL 0.9% 1,000 ML IV ONE (14:25)
[2023-04-22 14:39] LABS: BASOPHILS # (AUTO) 0.1 K/uL (0.00-0.22); BASOPHILS % (AUTO) 1.3 % (0.0-2.0); EOSINOPHILS # (AUTO) 0.4 K/uL (0-0.4); EOSINOPHILS % (AUTO) 4.5 % (0.0-4.0); LYMPHOCYTES # (AUTO) 1.5 K/uL (2.5-16.5); MEAN CORPUSCULAR HEMOGLOBIN 17 pg (27-31); MEAN CORPUSCULAR HGB CONC 28 g/dL (33-37); MEAN CORPUSCULAR VOLUME 60.6 fL (80-94); MONOCYTES # (AUTO) 0.8 K/uL (0.8-1.0); MONOCYTES % (AUTO) 10.4 % (1.7-9.3); NEUTROPHILS # (AUTO) 5.2 K/uL (1.8-7.7); NEUTROPHILS % (AUTO) 64.8 % (42.2-75.2); PLATELET COUNT (AUTO) 350 K/uL (140-450); RED BLOOD CELL COUNT(AUTO) 2.71 MIL/uL (4.20-5.40); RED CELL DISTRIBUTION WIDTH 19.2 % (11.6-13.7)
[2023-04-22 14:42] LABS: HEMATOCRIT 16.4 % (36-48); HEMOGLOBIN 4.6 g/dL (12.0-16.0)
[2023-04-22 14:44] LABS: LACTIC ACID 2.8 mmol/L (0.4-2.0)
[2023-04-22 15:09] LABS: ALBUMIN 3.3 g/dL (3.4-5.0); ANION GAP 14.6 (8-16); CARBON DIOXIDE 24.6 mmol/L (21-32); POTASSIUM 3.2 mmol/L (3.5-5.1); TOTAL BILIRUBIN 0.5 mg/dL (0.0-1.0); TOTAL PROTEIN, SERUM 7.4 g/dL (6.4-8.2)
[2023-04-22] MEDS ORDERED: POTASSIUM CHLORIDE 10 MEQ TABER PO ONE (15:15)
[2023-04-22 15:26] LABS: INR 1.03 (0.8-1.2); PARTIAL THROMBOPLASTIN TIME 23.4 secs (22-35.6); PROTHROMBIN TIME 10.8 secs (10.8-13.4)
[2023-04-22] MEDS ORDERED: ACETAMINOPHEN 325 MG TAB PO PRN (16:45)
[2023-04-22] MEDS ORDERED: MORPHINE SULFATE 2 MG/ML SYR IVP PRN (16:45)
[2023-04-22] MEDS ORDERED: LORazepam 2 MG/ML VIAL IVP PRN (16:45)
[2023-04-22] MEDS ORDERED: ONDANSETRON 4 MG/2 ML VIAL IVP PRN (16:45)
[2023-04-22 19:00] VITALS: BP 110/72; PULSE 87; RESP 16; TEMP 98.2; O2SAT 100
[2023-04-22 20:00] VITALS: PULSE 93; PULSE 99; RESP 16; O2SAT 100; O2SAT 99
[2023-04-22 21:00] VITALS: BP 116/62; PULSE 99; RESP 16; TEMP 97.5; O2SAT 99
[2023-04-22 22:00] VITALS: BP 103/47; PULSE 93; RESP 16; TEMP 98; O2SAT 100
[2023-04-23] VITALS: BP 125/59; PULSE 87; RESP 16; TEMP 97.2; O2SAT 98
[2023-04-23 04:07] VITALS: BP 129/61; PULSE 76; RESP 16; TEMP 98; O2SAT 95
[2023-04-23 07:41] LABS: BASOPHILS % (AUTO) 0.2 % (0.0-2.0); EOSINOPHILS # (AUTO) 0.3 K/uL (0-0.4); EOSINOPHILS % (AUTO) 3.1 % (0.0-4.0); HEMATOCRIT 21.4 % (36-48); LYMPHOCYTES # (AUTO) 1.5 K/uL (2.5-16.5); LYMPHOCYTES % (AUTO) 18.5 % (20.5-51.1); MEAN CORPUSCULAR HEMOGLOBIN 21 pg (27-31); MEAN CORPUSCULAR HGB CONC 31 g/dL (33-37); MEAN CORPUSCULAR VOLUME 68.2 fL (80-94); MONOCYTES # (AUTO) 0.8 K/uL (0.8-1.0); MONOCYTES % (AUTO) 9.3 % (1.7-9.3); NEUTROPHILS # (AUTO) 5.6 K/uL (1.8-7.7); NEUTROPHILS % (AUTO) 68.9 % (42.2-75.2); PLATELET COUNT (AUTO) 291 K/uL (140-450); RED BLOOD CELL COUNT(AUTO) 3.13 MIL/uL (4.20-5.40); RED CELL DISTRIBUTION WIDTH 26.3 % (11.6-13.7); WHITE BLOOD COUNT (AUTO) 8.2 K/uL (4.8-10.8)
[2023-04-23 07:45] LABS: HEMOGLOBIN 6.5 g/dL (12.0-16.0)
[2023-04-23 07:59] LABS: ALBUMIN 3.1 g/dL (3.4-5.0); ANION GAP 11.4 (8-16); CALCIUM 8.1 mg/dL (8.5-10.1); CARBON DIOXIDE 27.4 mmol/L (21-32); CREATININE 0.9 mg/dL (0.6-1.3); MAGNESIUM 2.3 mg/dL (1.8-2.4); POTASSIUM 3.8 mmol/L (3.5-5.1); TOTAL BILIRUBIN 0.7 mg/dL (0.0-1.0); TOTAL PROTEIN, SERUM 7.1 g/dL (6.4-8.2)
[2023-04-23 08:00] VITALS: BP 112/57; PULSE 78; RESP 18; TEMP 97.9; O2SAT 98
[2023-04-23 16:00] VITALS: BP 159/50; PULSE 89; RESP 20; TEMP 98.3; O2SAT 96
[2023-04-23 19:06] LABS: HEMATOCRIT 25.3 % (36-48); HEMOGLOBIN 7.7 g/dL (12.0-16.0)
[2023-04-23 20:49] VITALS: BP 120/81; PULSE 85; RESP 18; TEMP 98.5
[2023-05-28] MEDS ORDERED: MEDR10TA PO (10:36)
== END 2023-04-23 21:45 | disposition home or self-care (01) | DRG 663 ==
LOC: MED 13:22 → MTU 16:44 → OBSVTOIN 16:44 → MTU 18:13
PROVIDERS: ADMIT Hospitalist; ATTEND Hospitalist
PROC: 30233N1 Transfusion of Nonautologous Red Blood Cells into Peripheral Vein, Percutaneous Approach (ICD-10-PCS; principal; 2023-04-22)
DX: D50.0 Iron deficiency anemia secondary to blood loss (chronic) (principal); E44.0 Moderate protein-calorie malnutrition; Z68.43 Body mass index [BMI] 50.0-59.9, adult; E03.9 Hypothyroidism, unspecified; N93.9 Abnormal uterine and vaginal bleeding, unspecified; I10 Essential (primary) hypertension; J45.909 Unspecified asthma, uncomplicated; Z88.8 Allergy status to other drugs, medicaments and biological substances; E66.01 Morbid (severe) obesity due to excess calories
CPT/HCPCS: 36415; 36430; 71046; 80053; 83605; 83735; 83880; 84484; 85018; 85025; 85379; 85610; 85730; 86886; 86900; 86901; 86920; 87040; 87081; 93005; 99291; P9016

== ENCOUNTER 2023-12-22 17:28 | Emergency (ER) | payer OTHER ==
[~2023-12-22] VITALS: Ht 170.2 cm; Wt 158.8 kg
[~2023-12-22 17:28] MED LIST changes: -HYDR-4004 PO; +MEDR10TA PO
[2023-12-22 17:56] VITALS: BP 100/55; PULSE 113; RESP 19; TEMP 98.7; O2SAT 99
[2023-12-22 19:00] LABS: ANION GAP 14.8 (8-16); CREATININE 0.9 mg/dL (0.6-1.3); POTASSIUM 3.8 mmol/L (3.5-5.1)
[2023-12-22 19:08] LABS: BASOPHILS # (AUTO) 0.1 K/uL (0.00-0.22); BASOPHILS % (AUTO) 1.4 % (0.0-2.0); EOSINOPHILS # (AUTO) 0.2 K/uL (0-0.4); EOSINOPHILS % (AUTO) 1.7 % (0.0-4.0); HEMATOCRIT 20.9 % (36-48); LYMPHOCYTES # (AUTO) 0.9 K/uL (2.5-16.5); LYMPHOCYTES % (AUTO) 8.9 % (20.5-51.1); MEAN CORPUSCULAR HEMOGLOBIN 20 pg (27-31); MEAN CORPUSCULAR HGB CONC 29 g/dL (33-37); MEAN CORPUSCULAR VOLUME 69.2 fL (80-94); MONOCYTES # (AUTO) 0.8 K/uL (0.8-1.0); MONOCYTES % (AUTO) 8.4 % (1.7-9.3); NEUTROPHILS # (AUTO) 7.9 K/uL (1.8-7.7); NEUTROPHILS % (AUTO) 79.6 % (42.2-75.2); PLATELET COUNT (AUTO) 341 K/uL (140-450); RED BLOOD CELL COUNT(AUTO) 3.01 MIL/uL (4.20-5.40); RED CELL DISTRIBUTION WIDTH 17.2 % (11.6-13.7); WHITE BLOOD COUNT (AUTO) 9.9 K/uL (4.8-10.8)
[2023-12-22 19:11] LABS: HEMOGLOBIN 6.1 g/dL (12.0-16.0)
[2023-12-22 19:22] LABS: INR 1.12 (0.8-1.2); PARTIAL THROMBOPLASTIN TIME 25.6 secs (22-35.6); PROTHROMBIN TIME 11.7 secs (10.8-13.4)
[2023-12-22 19:33] VITALS: O2SAT 99
[2023-12-22] MEDS: medroxyPROGESTERone 10 MG TAB PO ONE (21:13)
[2023-12-22] MEDS ORDERED: MEDR10TA PO (22:22)
[2023-12-22 22:50] VITALS: BP 128/60; PULSE 99; RESP 16; TEMP 97.5; O2SAT 99
== END 2023-12-22 22:50 | disposition home or self-care (01) ==
LOC: MED 17:28
DX: N92.0 Excessive and frequent menstruation with regular cycle (principal); D64.9 Anemia, unspecified; D25.9 Leiomyoma of uterus, unspecified; E03.9 Hypothyroidism, unspecified; D64.89 Other specified anemias; I10 Essential (primary) hypertension; Z79.899 Other long term (current) drug therapy; Z91.018 Allergy to other foods
CPT/HCPCS: 36415; 36430; 80048; 81025; 85025; 85610; 85730; 86886; 86900; 86901; 86920; 96372; 99291; J1050; P9016